=== PATIENT | female | born 1990 | race Caucasian/White ===

== ENCOUNTER → 2023-03-28 | Outpatient (CLI) | payer MEDICAID, SELFPAY ==
--- NOTE | 2023-03-28 07:51 | US_ITS ---
INDICATION: FLANK PAIN EXAMINATION: Ultrasound US Kidney(s) complete (eg, kidneys and bladder) TECHNIQUE: Marques scale and color doppler images were obtained of the kidneys. COMPARISON: None. FINDINGS: Technically suboptimal study due to bowel gas. RIGHT KIDNEY: 11.5 cm length. Lobulated contour. There is no hydronephrosis. Suboptimal parenchymal detail. No shadowing calculus, focal lesion or perinephric collection is demonstrated. LEFT KIDNEY: 9.2 cm length. There is no hydronephrosis. 10 mm echogenic focus in the lower pole consistent with calculus. URINARY BLADDER: Mildly distended. Volume 47 mL. Ureteral jets were not visualized. US/Kidney and Bladder IMPRESSION: No hydronephrosis. Left nephrolithiasis with 10 mm calculus. Electronically Signed: Sindy Adams MD at 8:15 EDT ,
== END | disposition home or self-care (01) ==
LOC: US 07:50
PROVIDERS: PCP Internal Medicine; Referring Provider Urology; Visit Provider Urology
DX: R10.9 Unspecified abdominal pain (principal)
CPT/HCPCS: 76770

== ENCOUNTER → 2023-05-04 | Outpatient (CLI) | payer MEDICAID, SELFPAY ==
--- NOTE | 2023-05-04 08:17 | CT_ITS ---
STUDY: CT ABDOMEN AND PELVIS WITHOUT CONTRAST REASON FOR EXAM: Female, 32 years old. CALCULUS OF KIDNEY, ABDOMINAL PAIN RADIATION DOSAGE (If Supplied By Facility): CTDIvol = ( 15.61 ) mGy, DLP = ( 795.83 ) mGycm TECHNIQUE: Transaxial images were obtained from the dome of the diaphragm to the symphysis pubis without oral contrast, and without intravenous contrast. Sagittal and coronal images were reconstructed. Individualized dose optimization techniques were used for this CT. COMPARISON: None. FINDINGS: The visualized lung bases are unremarkable. The visualized portions of the heart are within normal limits. Normal liver. Normal gallbladder and extrahepatic biliary system. Normal spleen. Normal pancreas. Normal bilateral adrenal glands. There is a 3.3 mm nonobstructive calculus in the upper pole calyx of the right kidney. There is a 5.1 mm nonobstructive calculus in the lower pole of the left kidney. There are cortical scars seen in both kidneys. Normal visualized stomach. Normal small intestine. There are scattered colonic diverticula consistent with diverticulosis. There are surgical clips in the region of the appendix consistent with a prior appendectomy. Normal abdominal aorta. Normal inferior vena cava. Normal retroperitoneum. Normal urinary bladder. There is absence of the uterus consistent with a prior hysterectomy. There is a small umbilical hernia containing fat. Small bilateral inguinal lymph nodes. Normal osseous structures. CT/Abdomen/Pelvis without Cont IMPRESSION: Bilateral nonobstructive intrarenal calculi. Bilateral renal cortical scarring Electronically Signed: Herman Cronin MD at 8:55 EDT ,
[2023-05-04 09:34] LABS: Absolute Neutrophil Count 4.6 X10^3/uL (2.0-7.7); Basophil# 0.04 X10^3/uL; Basophil% 0.6 % (0-1); Eosinophils% 2.8 % (0-5); Hematocrit 41.2 % (37-47); Hemoglobin 13.9 g/dL (12.0-15.0); Lymphocyte % 26.3 % (19-41); Mean Corp Hgb Conc 33.7 g/dL (32-36); Mean Corpuscular Hgb 29.4 pg (27.0-32.0); Mean Corpuscular Volume 87.3 fL (81-99); Mean Platelet Vol. 9.5 fl (6.2-12.0); Monocyte# 0.49 X10^3/uL; Monocyte% 6.8 % (0-10); NRBC Flagged by Analyzer 0 % (0-5); Neutrophil # 4.57 X10^3/uL (2.7-7.7); Neutrophil % 63.2 % (47-70); Platelet Count 263 K/mm3 (150-450); RBC Distribution Width CV 12.6 % (11.6-14.6); RBC Distribution Width SD 40.5 fl (35.1-43.9); Red Blood Count 4.72 M/mm3 (4.2-5.4); White Blood Count 7.2 K/mm3 (4.4-11.0)
[2023-05-04 10:21] LABS: AST(SGOT) 18 U/L (15-37); Alanine Aminotransfer ALT/SGPT 27 U/L (13-56); Albumin, Serum 3.6 g/dL (3.2-5.0); Alkaline Phosphatase 98 U/L (45-117); Anion Gap 6 (5-15); BUN 15 mg/dL (7-18); Bilirubin, Direct 0.14 mg/dL (0.00-0.30); Calcium,Total 8.8 mg/dL (8.5-10.1); Chloride 107 mmol/L (98-107); Creatinine, Serum 0.79 mg/dL (0.55-1.02); EST Glomerular Filtration Rate 91 mL/min (>60); Est Glom Filt Rate - Afr Amer 110 mL/min (>60); Globulin 4.1 g/dL (2.2-4.2); Glucose 100 mg/dL (74-106); Potassium 3.9 mmol/L (3.5-5.1); Protein, Total 7.7 g/dL (6.4-8.2); Sodium Level 139 mmol/L (136-145)
--- NOTE | 2023-05-04 10:30 | RAD_ITS ---
INDICATION: KIDNEY STONES EXAMINATION/TECHNIQUE: X-RAY - XR Abdomen 1 View COMPARISON: CT scan of the abdomen and pelvis of 05/04/2023. FINDINGS: BOWEL GAS PATTERN: Non-obstructive. No bowel or stomach distention. FREE AIR: Not assessed on a single supine view. ORGANOMEGALY: Not seen. CALCIFICATIONS: 5 mm faint calcification overlying the left kidney corresponding to the CT abnormality. No other abnormal calcifications are definitely seen. LOWER CHEST: No acute pathology. BONES AND SOFT TISSUES: No acute pathology. RAD/Abdomen Single View IMPRESSION: Small calcification on the left side of the abdomen consistent with renal stone. Electronically Signed: Bruno Delaney MD at 8:35 EDT ,
[2023-05-04 10:45] LABS: Hepatitis B Surface Antibody Reactive; Hepatitis B Surface Antigen Non-Reactive (Nonreactive); Hepatitis C Antibody Non-Reactive (Nonreactive)
[2023-05-06 05:07] LABS: Hepatitis B Core Ab Total Negative (Negative); QNTFERON TB Mitogen Value > 10.00 IU/mL (.); QNTFERON TB Nil Value 0.12 IU/mL (.); QNTFERON TB1+ Ag Value 0.14 IU/mL (.); QNTFERON TB2+ Ag Value 0.16 IU/mL (.); QNTIFERON TB Positive Criteria Negative (Negative)
== END | disposition home or self-care (01) ==
PROVIDERS: PCP Internal Medicine; Referring Provider Urology; Visit Provider Urology
DX: N20.0 Calculus of kidney (principal); L73.2 Hidradenitis suppurativa
CPT/HCPCS: 36415; 74018; 74176; 80048; 80076; 85025; 86480; 86704; 86706; 86803; 87340

== ENCOUNTER 2023-05-07 08:09 | Day surgery (SDC) | payer MEDICAID, SELFPAY ==
[2023-05-07] VITALS (9 sets, daily range): BP systolic 108–118; BP diastolic 52–77; PULSE 61–75; RESP 16–18; TEMP 36.3–36.7; O2SAT 97–100; BMI 33.3
[2023-05-07] MEDS: Lactated Ringers 1,000 ML 15 ML IV (08:41)
--- NOTE | 2023-05-07 09:39 | PCM.OPRPT ---
Report of Operation Date of Procedure: 05/07/23 Pre-Operative Diagnosis: Left renal stone Post-Operative Diagnosis: Same Surgery/Procedure Performed:: Left renal extracorporal shockwave lithotripsy Surgeon: Chelly Pereira Type of Anesthesia: General Description of Procedure: The patient is here for surgical intervention for a left renal calculus. Informed consent was obtained. The patient was taken to the operating room and placed on the operating room table. Anesthesia monitored the head, neck, airway, IV access and vital signs throughout the case. Once anesthesia was appropriately administered, the patient was positioned on the lithotripsy table such that the stones were easily visible. 3000 shocks in total were applied to stones which appeared to be well fragmented at the conclusion of the case. She was then awakened and taken to the recovery room in good condition. There were no complications during this procedure. Grafts/Implants Used: None Complications None Admit VTE Documentation VTE Present on Admission: Yes VTE Mechan Device Prophylaxis: SCD's VTE Pharm Prophylaxis ordered?: No Reason prophylaxis not ordered:: Treatment Not Indicated
--- NOTE | 2023-05-07 09:40 | DCINST_ITS ---
Discharge Instructions Diet Discharge Diet: No restrictions Activity Discharge Activity: Return to Normal Activity Dressing / Incision Call your doctor if you observe: Fever of 101 or Higher, Inability to urinate and Inability to have a bowel movement Follow Up Care Please Follow Up With: Chelly Pereira MD Test Results: Test results from this visit will be discussed in further detail at your follow- up appointment, if applicable. Discharge Plan Admission Attending Provider: Chelly Pereira Primary Care Provider: Leeanna Luis Discharge Orders/Prescriptions Prescriptions: New oxycodone-acetaminophen [Percocet] 5-325 mg tablet 1 tab PO Q8H PRN (Reason: pain) 3 Days Qty: 10 0RF cephalexin [cephalexin] 500 mg capsule 500 mg PO Q12 3 Days Qty: 6 0RF Continued Botox 100 unit recon soln 100 unit IM .EVERY 3 MO Myrbetriq 50 mg tablet extended release 24 hr 100 mg PO DAILY Humira(CF) Pen [id number]-DN-JF 80 mg/0.8 mL pen injector kit 80 mg SUBCUT Q14D doxycycline monohydrate 100 mg tablet 100 mg PO BID verapamil 120 mg tablet 120 mg PO DAILY Patient Comments: take 1 tablet by mouth every morning spironolactone 100 mg tablet 100 mg PO QHS triamcinolone acetonide 0.1 % cream 1 applic TOPICAL MO Opzelura 1.5 % cream 1 applic topical BID ketoconazole 2 % cream 1 applic TOPICAL BID Referrals / Follow Up: Leeanna Luis MD [Primary Care Provider] - Disposition Disposition (needs filled in before D/C Order can be placed): Home, Self Care
[2023-05-07] MEDS: Cefazolin 2 GM in 0.9% Normal Saline (100mL Bag) 100 ML IV (09:50)
[2023-05-07] MEDS: Ketorolac 30 MG/ML Syringe IV (13:07)
[2023-05-07] MEDS: Acetaminophen 325 MG Tablet PO (13:30)
[2023-05-07] MEDS: oxyCODONE 5 MG Tablet PO (13:30)
== END 2023-05-07 14:01 | disposition home or self-care (01) ==
LOC: SDC 08:10 → AC 08:11
PROVIDERS: PCP Internal Medicine; Referring Provider Urology; Visit Provider Urology
PROC: (CPT 50590; principal; 2023-05-07 09:40)
DX: N20.0 Calculus of kidney (principal); M06.9 Rheumatoid arthritis, unspecified; M62.89 Other specified disorders of muscle; R35.0 Frequency of micturition; R39.15 Urgency of urination; R35.1 Nocturia; K59.09 Other constipation; Z79.899 Other long term (current) drug therapy
CPT/HCPCS: 50590; 00873; J7120; J2405

== ENCOUNTER → 2023-06-05 | Outpatient (CLI) | payer MEDICAID, SELFPAY ==
--- NOTE | 2023-06-05 10:00 | RAD_ITS ---
STUDY: X-RAY - ABDOMEN/PELVIS REASON FOR EXAM: Female, 32 years old. Kidney stones. Follow-up. TECHNIQUE: Single AP view of the abdomen / pelvis. COMPARISON: May 04, 2023. FINDINGS: Normal visualized lung bases. Normal bowel gas pattern with air seen to the rectosigmoid. Stable small 5 mm in diameter calcification projected over the left kidney. Normal soft tissue structures. Normal visualized osseous structures. RAD/Abdomen Single View IMPRESSION: Stable left nephrocalcinosis. No acute finding. Electronically Signed: Ayo Fonseca MD at 13:41 EDT ,
== END | disposition home or self-care (01) ==
LOC: MTRAD 09:58
PROVIDERS: PCP Internal Medicine; Referring Provider Urology; Visit Provider Urology
DX: N20.0 Calculus of kidney (principal)
CPT/HCPCS: 74018

== ENCOUNTER 2023-07-03 11:00 | Outpatient (RCR) | payer MEDICAID, SELFPAY ==
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
== END 2023-07-03 19:00 | disposition home or self-care (01) ==
LOC: PT 11:00
PROVIDERS: Referring Provider Urology; Visit Provider Urology
DX: K59.02 Outlet dysfunction constipation (principal)
CPT/HCPCS: 97140; 97162; 97530